=== PATIENT | female | born 1990 | race Caucasian/White ===

== ENCOUNTER 2017-05-10 12:48 | Emergency (ER) | payer OTHER ==
[2017-05-10 13:18] VITALS: BP 120/75
--- NOTE | 2017-05-10 14:06 | UC ---
Knee Pain HPI - HPI Summary HPI Summary: Pt fell forward onto R knee without a twist about 3 weeks ago while wearing knee pads playing [employer]. Since then has been sore, feels like it is getting more inflamed. Denies any instability with weight-bearing or changing directions, no prior surgery. Did have a twisting injury about 3 years ago that took several weeks to recover, but did not have medical care afterward. - History of Current Complaint Chief Complaint: UCLowerExtremity Stated Complaint: KNEE INJURY Time Seen by Provider: 05/10/17 13:32 Hx Obtained From: Patient Hx Last Menstrual Period: 10/08/2016 ?: No Onset/Duration: Sudden Onset Severity Initially: Mild Severity Currently: Moderate Character: Dull, Aching Aggravating Factor(s): Weight Bearing, Prolonged Standing, Stairs Alleviating Factor(s): Rest Associated Signs And Symptoms: Negative: Swelling, Redness, Bruising, Numbness, Tingling Able to Bear Weight: Yes - Allergies/Home Medications Allergies/Adverse Reactions: Allergies Allergy/AdvReac Type Severity Reaction Status Date / Time No Known Allergies Allergy Verified 10/25/16 09:58 PMH/Surg Hx/FS Hx/Imm Hx Previously Healthy: Yes - Surgical History Surgical History: None - Family History Known Family History: Negative: Blood Disorder - Social History Lives: With Family Alcohol Use: Daily Substance Use Type: None Smoking Status (MU): Never Smoked Tobacco - Immunization History Most Recent Influenza Vaccination: DID NOT GET THE FLU SHOT THIS YEAR Review of Systems Constitutional: Negative Skin: Negative Eyes: Negative ENT: Negative Respiratory: Negative Cardiovascular: Negative Gastrointestinal: Negative Genitourinary: Negative Motor: Negative Neurovascular: Negative Musculoskeletal: Arthralgia Neurological: Negative Psychological: Negative All Other Systems Reviewed And Are Negative: Yes Physical Exam Triage Information Reviewed: Yes Appearance: Well-Appearing, No Pain Distress, Well-Nourished Vital Signs: Initial Vital Signs Temp 98.3 F 05/10/17 13:14 Pulse 67 05/10/17 13:14 Resp 16 05/10/17 13:14 BP 120/75 05/10/17 13:14 Pulse Ox 100 05/10/17 13:14 Vital Signs Reviewed: Yes Eye Exam: Normal Eyes: Positive: Conjunctiva Clear ENT Exam: Normal ENT: Positive: Normal ENT inspection, Hearing grossly normal, Pharynx normal, TMs normal Dental Exam: Normal Neck exam: Normal Respiratory Exam: Normal Respiratory: Positive: Chest non-tender, Lungs clear, Normal breath sounds, No respiratory distress, No accessory muscle use Cardiovascular Exam: Normal Cardiovascular: Positive: RRR, No Murmur Musculoskeletal Exam: Other - R knee anterior Musculoskeletal: Positive: Strength Intact, ROM Intact Neurological Exam: Normal Neurological: Positive: Alert Psychological Exam: Normal Skin Exam: Normal Knee Pain Course/Dx - Differential Dx/Diagnosis Provider Diagnoses: R anterior knee pain Discharge - Discharge Plan Condition: Stable Disposition: HOME Patient Education Materials: Patellofemoral Pain Syndrome (ED) Referrals: No Primary Care Phys,NOPCP [Primary Care Provider] - Additional Instructions: Take 600mg ibuprofen 3 times per day, avoid exercise that is painful, and arrange for physical therapy. What is patellofemoral pain syndrome? Patellofemoral pain syndrome is pain in the front of the knee. It frequently occurs in teenagers, manual laborers, and athletes. It sometimes is caused by wearing down, roughening, or softening of the cartilage under the kneecap. What causes patellofemoral pain syndrome? Patellofemoral pain syndrome may be caused by overuse, injury, excess weight, a kneecap that is not properly aligned, or changes under the kneecap. What are the symptoms? The main symptom of patellofemoral pain syndrome is knee pain, especially when sitting with bent knees, squatting, jumping, or using the stairs (especially going down stairs). You may also experience occasional knee buckling, in which the knee suddenly and unexpectedly gives way and does not support your body weight. A catching, popping, or grinding sensation when walking or with knee movement is also common. How is patellofemoral pain syndrome diagnosed? Your health professional will conduct a medical history and physical exam to determine the cause of your pain. In some cases, imaging tests including x-rays or MRIs may be done. These tests allow a doctor to view the tissues inside your knee to rule out damage to the structure of the knee and the tissues connected to it. How is it treated? Patellofemoral pain syndrome can be relieved by avoiding activities that make symptoms worse. Avoid sitting or kneeling in the bent-knee position for long periods of time. Adjust a bicycle or bike so that the resistance is not too great and the seat is at an appropriate height. The rider should be able to spin the pedals of an exercise bike without shifting weight from side to side, and the legs should not be fully extended at the lowest part of the pedal. Avoid bent-knee exercises, such as squats, deep knee bends, or 90-degree leg extensions. Other methods to relieve pain include: * Taking nonprescription anti-inflammatory (NSAIDs), such as ibuprofen or naproxen sodium, to decrease swelling, stiffness, and pain. * Ice and rest. * Physical therapy exercises. Exercises may increase flexibility and decrease tightness around the knee, and straight-leg raises and other exercises to strengthen the quadriceps muscle. * Taping or using a brace to stabilize the kneecap.
== END 2017-05-10 14:06 | disposition home or self-care (01) ==
LOC: UCEAST 12:48
DX: M25.561 Pain in right knee (principal); W18.30XA Fall on same level, unspecified, initial encounter; Y93.51 Activity, roller skating (inline) and skateboarding; Y92.9 Unspecified place or not applicable; Y99.9 Unspecified external cause status
CPT/HCPCS: 99211; G0463